=== PATIENT | male | born 1990 | race African-American/Black ===

== ENCOUNTER 2017-03-22 08:40 | Emergency (ER) | payer MEDICAID, OTHER ==
--- NOTE | 2017-03-22 09:21 | RAD ---
INDICATION: Asthma. Short of breath. COMPARISON: August 11, 2013 TECHNIQUE: An AP portable view obtained at 0905 hours is submitted. FINDINGS: Bones/Soft Tissues: There are no acute bony findings. Cardiomediastinal: The cardiomediastinal silhouette is normal. Lungs: There are no infiltrates. Pleura: There are no pleural effusions. Other: None IMPRESSION: NO ACTIVE DISEASE.
[2017-03-22] MEDS ORDERED: methylPREDNISolone 125 MG* 2 ML VIAL IV ONE (09:26)
[2017-03-22] MEDS ORDERED: NS 0.9% 1000 ML* 1,000 ML IV ONE (09:26)
[2017-03-22] MEDS ORDERED: Albuterol/Ipratropium NEB.SOL* Albuterol 2.5 MG/Ipratropium 0.5 MG 3 ML ONE ×2 (09:34→11:00)
[2017-03-22] MEDS: Albuterol/Ipratropium NEB.SOL* Albuterol 2.5 MG/Ipratropium 0.5 MG 3 ML INH SCH ×3 (09:39→10:35)
[2017-03-22 10:00] LABS: Hematocrit 44 % (42-52); Hemoglobin 14.7 g/dl (14.0-18.0); Mean Corpuscular HGB Conc 33 g/dl (31-36); Mean Corpuscular Hemoglobin 29 pg (27-31); Mean Corpuscular Volume 89 fL (80-94); Mean Platelet Volume 8 um3 (7.4-10.4); Red Blood Count 5.01 10^6/ul (4.0-5.4); Red Cell Distribution Width 15 % (10.5-15); White Blood Count 9.4 10^3/ul (3.5-10.8)
[2017-03-22 10:18] LABS: Albumin 4.6 g/dL (3.2-5.2); C Reactive Protein 73.85 mg/L (< 5.00); Calcium 9.4 mg/dL (8.6-10.3); EGFR African American 113.6 (>60); EGFR Non-African American 88.3 (>60); Globulin 3.4 g/dL (2-4); Potassium 3.7 mmol/L (3.5-5.0); Total Bilirubin 0.7 mg/dL (0.2-1.0)
[2017-03-22 11:40] VITALS: BP 136/79
--- NOTE | 2017-03-23 12:04 | ED ---
Karol Patrick Rebecca, scribed for Cheko Verdin MD on 03/22/17 at 0928 . Asthma - HPI Summary HPI Summary: Pt is a 27 y/o M with a PMHx of asthma who presents to ED c/o SOB and productive cough for 2 days. Phlegm is yellow-green. Has been using his albuterol inhaler until he lost it last night. Sx aggravated and alleviated by nothing. Denies fever, chills, CP. PMHx asthma, allergies. SHx current cigar smoker (1 per day). - History of Current Complaint Chief Complaint: EDAsthma Stated Complaint: SOB Time Seen by Provider: 03/22/17 09:19 Hx Obtained From: Patient Onset/Duration: Lasting Days - 2 days, Still Present Current Severity: Mild Pain Intensity: 2 Pain Scale Used: 0-10 Numeric Aggravating Symptoms: Nothing Alleviating Symptoms: Nothing Associated Signs and Symptoms: Positive: Shortness of Breath - Allergy/Home Medications Allergies/Adverse Reactions: Allergies Allergy/AdvReac Type Severity Reaction Status Date / Time Shellfish Allergy Allergy Anaphylatic Verified 03/22/17 08:43 Shock cats Allergy Eyes Uncoded 03/22/17 08:43 Itchy/Swollen/Red/Watery PMH/Surg Hx/FS Hx/Imm Hx Endocrine/Hematology History: Denies: Hx Diabetes, Hx Thyroid Disease Cardiovascular History: Denies: Hx Hypertension Respiratory History: Reports: Hx Asthma, Other Respiratory Problems/Disorders - Allergies Denies: Hx Chronic Obstructive Pulmonary Disease (COPD) GI History: Denies: Hx Ulcer - Immunization History Date of Tetanus Vaccine: Unknown Date of Influenza Vaccine: 2012 Infectious Disease History: Denies: Hx Hepatitis, Hx Human Immunodeficiency Virus (HIV), Traveled Outside the [place] in Last 30 Days - Family History Known Family History: Negative: Cardiac Disease - Social History Substance Use Type: Reports: None Hx Tobacco Use: Yes Smoking Status (MU): Current Every Day Smoker Type: Cigars Review of Systems Negative: Fever, Chills Negative: Chest Pain Positive: Shortness Of Breath, Cough - productive All Other Systems Reviewed And Are Negative: Yes Physical Exam - Summary Physical Exam Summary: VITAL SIGNS: Reviewed. GENERAL: ~Patient is a well-developed and nourished (MALE OR FEMALE) who is lying comfortable in the stretcher. ~Patient is not in any acute respiratory distress. HEAD AND FACE: No signs of trauma. ~No ecchymosis, hematomas or skull depressions. No sinus tenderness. EYES: PERRLA, EOMI x 2, No injected conjunctiva, no nystagmus. EARS: Hearing grossly intact. Ear canals and tympanic membranes are within normal limits. MOUTH: Oropharynx within normal limits. NECK: Supple, trachea is midline, no adenopathy, no JVD, no carotid bruit, no c- spine tenderness, neck with full ROM. CHEST: Symmetric, no tenderness at palpation LUNGS: Diffuse wheezing. No crackles. CVS: Regular rate and rhythm, S1 and S2 present, no murmurs or gallops appreciated. ABDOMEN: Soft, non-tender. No signs of distention. No rebound no guarding, and no masses palpated. Bowel sounds are normal. EXTREMITIES: FROM in all major joints, no edema, no cyanosis or clubbing. NEURO: Alert and oriented x 3. No acute neurological deficits. Speech is normal and follows commands. SKIN: Dry and warm Triage Information Reviewed: Yes Vital Signs On Initial Exam: Initial Vitals Temp Pulse Resp BP Pulse Ox 98.2 F 91 20 130/82 97 03/22/17 08:44 03/22/17 08:44 03/22/17 08:44 03/22/17 08:44 03/22/17 08:44 Vital Signs Reviewed: Yes Diagnostics - Vital Signs Vital Signs Temp Pulse Resp BP Pulse Ox 03/22/17 08:44 98.2 F 91 20 130/82 97 - Laboratory Lab Results: Lab Results 03/22/17 03/22/17 03/22/17 Range/Units 09:43 09:43 09:43 WBC 9.4 (3.5-10.8) 10^3/ul RBC 5.01 (4.0-5.4) 10^6/ul Hgb 14.7 (14.0-18.0) g/dl Hct 44 (42-52) % MCV 89 (80-94) fL MCH 29 (27-31) pg MCHC 33 (31-36) g/dl RDW 15 (10.5-15) % Plt Count 233 (150-450) 10^3/ul MPV 8 (7.4-10.4) um3 Neut % (Auto) 81.3 (38-83) % Lymph % (Auto) 8.2 L (25-47) % [place] % (Auto) 8.7 (1-9) % Eos % (Auto) 1.4 (0-6) % Baso % (Auto) 0.4 (0-2) % Absolute Neuts (auto) 7.6 (1.5-7.7) 10^3/ul Absolute Lymphs (auto) 0.8 L (1.0-4.8) 10^3/ul Absolute Monos (auto) 0.8 (0-0.8) 10^3/ul Absolute Eos (auto) 0.1 (0-0.6) 10^3/ul Absolute Basos (auto) 0 (0-0.2) 10^3/ul Absolute Nucleated RBC 0 10^3/ul Nucleated RBC % 0 Sodium 137 (133-145) mmol/L Potassium 3.7 (3.5-5.0) mmol/L Chloride 103 (101-111) mmol/L Carbon Dioxide 28 (22-32) mmol/L Anion Gap 6 (2-11) mmol/L BUN 12 (6-24) mg/dL Creatinine 1.00 (0.67-1.17) mg/dL Est GFR ( Amer) 113.6 (>60) Est GFR (Non-Af Amer) 88.3 (>60) BUN/Creatinine Ratio 12.0 (8-20) Glucose 114 H (70-100) mg/dL Lactic Acid 0.7 (0.5-2.0) mmol/L Calcium 9.4 (8.6-10.3) mg/dL Total Bilirubin 0.70 (0.2-1.0) mg/dL AST 18 (13-39) U/L ALT 18 (7-52) U/L Alkaline Phosphatase 43 (34-104) U/L C-Reactive Protein 73.85 H (< 5.00) mg/L B-Natriuretic Peptide ( - 100) pg/mL Total Protein 8.0 (6.4-8.9) g/dL Albumin 4.6 (3.2-5.2) g/dL Globulin 3.4 (2-4) g/dL Albumin/Globulin Ratio 1.4 (1-3) 03/22/ Range/Units 09:43 WBC (3.5-10.8) 10^3/ul RBC (4.0-5.4) 10^6/ul Hgb (14.0-18.0) g/dl Hct (42-52) % MCV (80-94) fL MCH (27-31) pg MCHC (31-36) g/dl RDW (10.5-15) % Plt Count (150-450) 10^3/ul MPV (7.4-10.4) um3 Neut % (Auto) (38-83) % Lymph % (Auto) (25-47) % [place] % (Auto) (1-9) % Eos % (Auto) (0-6) % Baso % (Auto) (0-2) % Absolute Neuts (auto) (1.5-7.7) 10^3/ul Absolute Lymphs (auto) (1.0-4.8) 10^3/ul Absolute Monos (auto) (0-0.8) 10^3/ul Absolute Eos (auto) (0-0.6) 10^3/ul Absolute Basos (auto) (0-0.2) 10^3/ul Absolute Nucleated RBC 10^3/ul Nucleated RBC % Sodium (133-145) mmol/L Potassium (3.5-5.0) mmol/L Chloride (101-111) mmol/L Carbon Dioxide (22-32) mmol/L Anion Gap (2-11) mmol/L BUN (6-24) mg/dL Creatinine (0.67-1.17) mg/dL Est GFR ( Amer) (>60) Est GFR (Non-Af Amer) (>60) BUN/Creatinine Ratio (8-20) Glucose (70-100) mg/dL Lactic Acid (0.5-2.0) mmol/L Calcium (8.6-10.3) mg/dL Total Bilirubin (0.2-1.0) mg/dL AST (13-39) U/L ALT (7-52) U/L Alkaline Phosphatase (34-104) U/L C-Reactive Protein (< 5.00) mg/L B-Natriuretic Peptide 72 ( - 100) pg/mL Total Protein (6.4-8.9) g/dL Albumin (3.2-5.2) g/dL Globulin (2-4) g/dL Albumin/Globulin Ratio (1-3) Result Diagrams: 03/22/17 09:43 03/22/17 09:43 Lab Statement: Any lab studies that have been ordered have been reviewed, and results considered in the medical decision making process. - Radiology CXR Xray Interpretation: No Acute Changes - NO ACTIVE DISEASE. Radiology Interpretation Completed By: Radiologist - EKG 0942 Cardiac Rate: NL - 94bpm EKG Rhythm: Sinus Rhythm ST Segment: Normal Re-Evaluation - Re-Evaluation First Eval Re-Evaluation Time: 10:26 Change: Improved Comment: Pt sx have significantly improved. Asthma Course/Dx - Course Assessment/Plan: Pt is a 27 y/o M with a PMHx of asthma who presents to ED c/o SOB and productive cough for 2 days. Phlegm is yellow-green. Has been using his albuterol inhaler until he lost it last night. Sx aggravated and alleviated by nothing. Denies fever, chills, CP. PMHx asthma, allergies. SHx current cigar smoker (1 per day). Test results w/o any significant abnormality except glucose of 114 and CRP of 73. CXR shows no active disease. EKG is sinus rhythm with no ST elevations. In the ED course, the pt was given 3 Duonebs and Solu- Medrol. After these meds given, all sx resolved. Examination of lungs before discharge shows lungs are clear bilaterally w/o any wheezing or crackles and he has good air movement. His O2 saturation is 98% on RA. The pt is asymptomatic, therefore the pt will be D/C to home with f/u with PCP. He was given Rx for albuterol and Prednisone. He was recommended to return to ED if any sx return or worsen. He is hemodynamically stable adnA&Ox3. I discussed all the findings and test results with the patient. Patient was instructed to return to the emergency room immediately if any of the symptoms return or worsens . Plan of care was discussed with the patient and understands and agrees. All questions were answered at patient satisfaction. There were no further complaints or concerns. Lung exam before discharge: CTA B/L. Good air exchange. No wheezing or crackles heard. CVS: S1 and S2 present. No murmurs appreciated. Patient is alert and oriented x 3. Patient is hemodynamically stable. Patient will be discharged home with follow up personal care assistant in the next 2-3 days - Diagnoses Differential Diagnosis/HQI/PQRI: Positive: Acute Asthma, Bronchitis, CHF, COPD Excerbation, Pneumonia, Reactive Airway Disease Provider Diagnoses: Asthma exacerbation Discharge - Discharge Plan Condition: Stable Disposition: HOME Prescriptions: Albuterol HFA INHALER* [Ventolin HFA Inhaler*] 1 puff INH Q4H PRN #1 vial PRN Reason: Wheezing predniSONE TAB* [Deltasone TAB*] 40 mg PO DAILY #8 tab Patient Education Materials: Asthma (ED) Referrals: Cheko Mena MD [Primary Care Provider] - 3 Days () The documentation as recorded by the Karol finnegan Rebecca accurately reflects the service I personally performed and the decisions made by Lambert echeverria Walter, MD.
== END 2017-03-22 11:40 | disposition home or self-care (01) ==
LOC: ED 08:40
DX: J45.901 Unspecified asthma with (acute) exacerbation (principal); R06.02 Shortness of breath; R05 Cough; F17.210 Nicotine dependence, cigarettes, uncomplicated
CPT/HCPCS: 36415; 71010; 80053; 83605; 83880; 85025; 86140; 87070; 87205; 93005; 94640; 96374; 99283; A9270-GY; J2930

== ENCOUNTER → 2019-05-30 10:13 | Day surgery (SDC) | payer OTHER ==
[~2019-05-30 10:13] MED LIST: Acetaminophen TAB* 325 MG ONE; Acetaminophen TAB* 325 MG PO ONE; Buffered Lidocaine 1% SYRIN* 1 ML/SYRINGE INTRADERM ONE; Bupivacaine 0.25% SDV PF* 10 ML VIAL INJ ONE; Dexamethasone IV* 4 MG/ML 1 ML (4 MG) ONE; HYDROmorphone INJ1* 1 MG/ML SYRINGE IV PRN; Ketorolac INJ* 30 MG/ML 1 ML VIAL ONE; Lactated Ringers 1000 ML Bag* 1,000 ML IV SCH; Lidocaine 1% INJ* 10 MG/ML 30 ML SDV ONE; Lidocaine 2% PF* 10 ML AMP ONE; Midazolam* 1 MG/ML 2 ML VIAL (2 MG) ONE; Naloxone* 0.4 MG/ML 1 ML VIAL IV PRN; Propofol* 10 MG/ML 20 ML BTL ONE; Propofol* 500 MG/50 ML BTL ONE; ceFAZolin 2 GM PREMIX in ORs 2 GM/50 ML BAG ONE; fentaNYL* 50 MCG/ML 2 ML VIAL (100 MCG VIAL) ONE; oxyCODONE TAB* 5 MG TAB ONE; oxyCODONE TAB* 5 MG TAB PO PRN
[2019-05-30 14:04] VITALS: BP 124/84
--- NOTE | 2019-05-30 22:42 | OP ---
DATE OF OPERATION: 05/30/19 - SDS DATE OF : 86 SURGEON: Baltazar Huffman DPM ANESTHESIA: MAC local. PRE-OP DIAGNOSIS: Right hallux valgus. POST-OP DIAGNOSIS: Right hallux valgus. OPERATIVE PROCEDURE: Right hallux valgus repair. ESTIMATED BLOOD LOSS: Less than 10 cc. IV FLUIDS: LR 1000 cc. DRAINS: None. SPECIMENS: None. DESCRIPTION OF PROCEDURE: The patient was taken to the operating and was placed in the supine position. Time-out was called and OR team agreed. The right foot was then blocked with 10 cc of 1% lidocaine plain in a Godoy block fashion at the base of the first metatarsal. The foot was then prepped and draped in sterile manner. The right foot was then exsanguinated with an Esmarch bandage and the cuff was then inflated to 250 mmHg. Attention was then paid to the first metatarsophalangeal joint of the right foot. I made a linear incision right over the joint. This was followed by sharp and blunt dissection starting from the dermis, epidermis, subcutaneous tissue, and the deep fascia. Once I reached the capsule, I incised the capsule and the collateral ligaments holding the joint to deliver head of the first metatarsal. I evaluated the joint. There is a high intermetatarsal angle and incongruence of the metatarsophalangeal joint. I went ahead and resected the dorsal medial eminence , followed by a Chevron-type osteotomy. Once the osteotomy was completed, I went ahead and translated the head or capital fragment laterally to reduce the intermetatarsal angle and impacted the capital fragment and went ahead and fixated it with two 2-0 bone screws from the [employer] [place] set, which was done via guidewire and cannulated screw system and the fixation was guided via fluoroscopy as well. Once it was determined that I was able to reduce the intermetatarsal angle and the joint is now congruent, I went ahead and irrigated the site and closed the wound in a layered anatomical fashion. This completed the procedure. The cuff was then deflated. I injected 8 cc of 0.25% Marcaine plain as well as 2 cc of dexamethasone phosphate. The patient was taken to recovery in stable condition and was later discharged in stable condition as well. [id number]/[facility] #: [id number] [facility]
== END | disposition home or self-care (01) ==
LOC: OR 10:13
PROVIDERS: ATTEND Podiatrist
DX: M20.11 Hallux valgus (acquired), right foot (principal); F17.210 Nicotine dependence, cigarettes, uncomplicated; J45.909 Unspecified asthma, uncomplicated
CPT/HCPCS: 76000; A9270-GY; C1713; C1776; J0690; J1100; J1885; J2001; J2250; J2704; J3010; J3490

== ENCOUNTER 2019-08-12 08:58 | Emergency (ER) | payer OTHER ==
[2019-08-12] MEDS ORDERED: Albuterol/Ipratropium NEB.SOL* Albuterol 2.5 MG/Ipratropium 0.5 MG 3 ML INH ONE ×2 (09:12→11:24)
[2019-08-12] MEDS ORDERED: methylPREDNISolone 125 MG* 2 ML VIAL IV ONE (09:12)
--- NOTE | 2019-08-12 09:20 | ED ---
Asthma - HPI Summary HPI Summary: This pt is a 29 y/o male, with hx of asthma, presenting to [facility] c/o SOB since 3 days ago. Pt reports he ran out of his nebulizer treatments at home. Pt states he has been having difficulty breathing since 3 days ago and believes it is his asthma. Pt notes his asthma is triggered by the weather. Denies fever, chest pain, nausea, vomiting. Denies any other PMHx. Pt admits to smoking cigarettes. Denies any alcohol or drug use. - History of Current Complaint Chief Complaint: EDAsthma Stated Complaint: ASTHMA PER PT Time Seen by Provider: 08/12/19 09:09 Hx Obtained From: Patient Onset/Duration: Gradual Onset, Lasting Days, Still Present Timing: Days Pain Intensity: 4 Pain Scale Used: 0-10 Numeric Location/Character: Wheezing Aggravating Symptoms: Nothing Alleviating Symptoms: Nothing Associated Signs and Symptoms: Positive: Shortness of Breath - Allergy/Home Medications Allergies/Adverse Reactions: Allergies Allergy/AdvReac Type Severity Reaction Status Date / Time shellfish derived Allergy Severe Anaphylatic Verified 08/12/19 09:06 Shock pollen extracts Allergy Intermediate Sneezing Verified 08/12/19 09:06 cats Allergy Severe Eyes Uncoded 08/12/19 09:06 Itchy/Swollen/Red/Watery Home Medications: Home Medications Nyquil Cough And Cold 30 ml PO BEDTIME PRN 08/12/19 [History Confirmed 08/12/19] PMH/Surg Hx/FS Hx/Imm Hx Endocrine/Hematology History: Denies: Hx Diabetes, Hx Thyroid Disease Cardiovascular History: Denies: Hx Hypertension Respiratory History: Reports: Hx Asthma - NO SxIN PAST 2 YEARS, Other Respiratory Problems/Disorders - Allergies Denies: Hx Chronic Obstructive Pulmonary Disease (COPD) GI History: Denies: Hx Ulcer Sensory History: Denies: Hx Contacts or Glasses, Hx Hearing Aid Opthamlomology History: Denies: Hx Contacts or Glasses - Cancer History Hx Chemotherapy: No - Surgical History Surgical History: Yes Surgery Procedure, Year, and Place: Bunion removal from toes Hx Anesthesia Reactions: No - Immunization History Date of Tetanus Vaccine: Unknown Date of Influenza Vaccine: 2012 Infectious Disease History: No Infectious Disease History: Denies: Hx Hepatitis, Hx Human Immunodeficiency Virus (HIV), Traveled Outside the [place] in Last 30 Days - Family History Known Family History: Negative: Cardiac Disease, Hypertension, Diabetes - Social History Alcohol Use: None Substance Use Type: Reports: None Hx Tobacco Use: Yes Smoking Status (MU): Current Some Day Smoker Type: Cigarettes Amount Used/How Often: MAYBE 2 SMOKES/WEEK Have You Smoked in the Last Year: Yes Review of Systems Negative: Fever Negative: Chest Pain Positive: Shortness Of Breath Negative: Vomiting, Nausea All Other Systems Reviewed And Are Negative: Yes Physical Exam - Summary Physical Exam Summary: VITAL SIGNS: Reviewed. GENERAL: Patient is a well-developed and nourished male who is lying comfortable in the stretcher. Patient is not in any acute respiratory distress. HEAD AND FACE: No signs of trauma. No ecchymosis, hematomas or skull depressions. No sinus tenderness. EYES: PERRLA, EOMI x 2, No injected conjunctiva, no nystagmus. EARS: Hearing grossly intact. Ear canals and tympanic membranes are within normal limits. MOUTH: Oropharynx within normal limits. NECK: Supple, trachea is midline, no adenopathy, no JVD, no carotid bruit, no c- spine tenderness, neck with full ROM. CHEST: Symmetric, no tenderness at palpation. LUNGS: Decreased breath sounds bilaterally. Slight wheezing. CVS: Regular rate and rhythm, S1 and S2 present, no murmurs or gallops appreciated. ABDOMEN: Soft, non-tender. No signs of distention. No rebound, no guarding, and no masses palpated. Bowel sounds are normal. EXTREMITIES: FROM in all major joints, no edema, no cyanosis or clubbing. NEURO: Alert and oriented x 3. No acute neurological deficits. Speech is normal and follows commands. SKIN: Dry and warm. Triage Information Reviewed: Yes Vital Signs On Initial Exam: Initial Vitals Temp Pulse Resp BP Pulse Ox 98.9 F 79 18 115/74 95 08/12/19 09:02 08/12/19 09:02 08/12/19 09:02 08/12/19 09:02 08/12/19 09:02 Vital Signs Reviewed: Yes Procedures - Sedation Patient Received Moderate/Deep Sedation with Procedure: No Diagnostics - Vital Signs Vital Signs Temp Pulse Resp BP Pulse Ox 08/12/19 09:02 98.9 F 79 18 115/74 95 - Laboratory Result Diagrams: 08/12/19 09:26 08/12/19 09:26 Lab Statement: Any lab studies that have been ordered have been reviewed, and results considered in the medical decision making process. - Radiology Chest XR Radiology Interpretation Completed By: Radiologist Summary of Radiographic Findings: IMPRESSION: No active cardiopulmonary disease. Dr. Verdin has reviewed this report. - EKG 09:24 Cardiac Rate: NL - at 80 bpm EKG Rhythm: Sinus Rhythm Summary of EKG Findings: EKG at 0924 shows normal sinus rhythm at a rate of [address] elevations. Re-Evaluation - Re-Evaluation First Eval Re-Evaluation Time: 12:20 Comment: Reviewed results with pt. He will be discharged home. Second Eval Re-Evaluation Time: 12:42 Comment: Karen, ED nurse, reports pt with temporal temperature of 102.4F. Asthma Course/Dx - Course Assessment/Plan: This pt is a 29 y/o male, with hx of asthma, presenting to [facility] c/o SOB since 3 days ago. Pt reports he ran out of his nebulizer treatments at home. Pt states he has been having difficulty breathing since 3 days ago and believes it is his asthma. Pt notes his asthma is triggered by the weather. Denies fever, chest pain, nausea, vomiting. Denies any other PMHx. Pt admits to smoking cigarettes. Denies any alcohol or drug use. Blood work without any significant abnormality except for a CRP of 14. Influenza B is positive. Patient has been with symptoms for the last 3 days. He was given a DuoNeb since the patient was wheezing. Chest x-ray shows no pneumonia. However since the patient has a history of asthma and he has a productive cough I will give the patient azithromycin to prevent pneumonia. The patient was given Tylenol and ibuprofen and the symptoms improved. He is hemodynamically stable, alert and oriented 3. Patient is feeling better and he would be discharged home with follow-up from his PCP. - Diagnoses Provider Diagnoses: Asthma exacerbation, Influenza Discharge ED - Sign-Out/Discharge Documenting (check all that apply): Patient Departure - Discharge home - Discharge Plan Condition: Stable Disposition: HOME Prescriptions: Albuterol HFA INHALER* [Ventolin HFA Inhaler*] 2 puff INH Q4H PRN #1 mdi PRN Reason: Wheezing Azithromycin TAB* [Zithromax TAB (Z-DAVE) 250 mg #6 tabs] 250 mg PO DAILY #4 tab predniSONE 20 mg TAB [Deltasone 20 MG TAB*] 40 mg PO DAILY #10 tab Patient Education Materials: Asthma (ED), Influenza (ED) Referrals: Del Sánchez GLOBAL ACCOUNT DIRECTOR [Primary Care Provider] - Additional Instructions: Follow up with your primary care provider in 2-3 days. RETURN TO THE ED FOR ANY WORSENING OR NEW SYMPTOMS. - Billing Disposition and Condition Condition: STABLE Disposition: Home - Attestation Statements Document Initiated by Ayaan: Yes Documenting Scribe: Suzan Ibarra Provider For Whom Ayaan is Documenting (Include Credential): Cheko Verdin MD Scribe Attestation: Suzan Patrick, scribed for Cheko Verdin MD on 08/12/19 at 1837. Scribe Documentation Reviewed: Yes Provider Attestation: The documentation as recorded by the Suzan finnegan accurately reflects the service I personally performed and the decisions made by me, Cheko Verdin MD Status of Scribe Document: Viewed
[2019-08-12 09:35] LABS: ABS Lymphocytes 0.5 10^3/ul (1.0-4.8); ABS Monocytes 0.3 10^3/ul (0-0.8); ABS Neutrophils 3.9 10^3/ul (1.5-7.7); Eosinophil % 0.4 %; Hematocrit 41 % (42-52); Hemoglobin 14.1 g/dL (14.0-18.0); Lymphocyte % 9.7 %; Mean Corpuscular HGB Conc 34 g/dL (31-36); Mean Corpuscular Hemoglobin 30 pg (27-31); Mean Corpuscular Volume 88 fL (80-94); Mean Platelet Volume 8.3 fL (7.4-10.4); Platelet Count 183 10^3/uL (150-450); Red Blood Count 4.69 10^6 /uL (4.18-5.48); Red Cell Distribution Width 15 % (10-15); White Blood Count 4.7 10^3/uL (3.5-10.8)
[2019-08-12 09:50] LABS: Albumin 4.7 g/dL (3.2-5.2); Albumin/Globulin Ratio 1.4 (1-3); BUN/Creatinine Ratio 11.4 (8-20); C Reactive Protein 14.07 mg/L (<8.01); Calcium 9.2 mg/dL (8.6-10.3); EGFR African American 90.7 (>60); EGFR Non-African American 74.9 (>60); Globulin 3.4 g/dL (2-4); Potassium 3.6 mmol/L (3.5-5.0); Total Bilirubin 0.5 mg/dL (0.2-1.0); Total Protein 8.1 g/dL (6.4-8.9)
[2019-08-12] MEDS: NS 0.9% 1000 ML** 1,000 ML IV ONE ×2 (10:53→13:22)
[2019-08-12] MEDS ORDERED: Acetaminophen TAB* 325 MG PO ONE (12:43)
[2019-08-12] MEDS ORDERED: Azithromycin TAB* 250 MG PO ONE (12:43)
[2019-08-12 13:16] LABS: Influenza B Molecular POSITIVE (Negative)
[2019-08-12 15:18] VITALS: BP 131/77
== END 2019-08-12 15:19 | disposition home or self-care (01) ==
LOC: ED 08:58
DX: J45.901 Unspecified asthma with (acute) exacerbation (principal); J10.1 Influenza due to other identified influenza virus with other respiratory manifestations; Z91.013 Allergy to seafood; Z91.09 Other allergy status, other than to drugs and biological substances; Z72.0 Tobacco use
CPT/HCPCS: 36415; 71046; 80053; 83605; 83880; 85025; 86140; 93005; 96360; 99283; A9270-GY; J2930; J7512